=== PATIENT | female | born 1960 | race Caucasian/White ===

== ENCOUNTER 2017-01-31 09:15 | Emergency (ER) | payer OTHER ==
[2017-01-31 09:47] VITALS: BP 163/107
--- NOTE | 2017-01-31 10:18 | EDM.PDOC ---
ED HPI GENERAL MEDICAL PROBLEM - General Chief Complaint: Genitourinary Problem Stated Complaint: BLADDER INFECTION Time Seen by Provider: 01/31/17 09:42 Source of Information: Reports: Patient, RN Notes Reviewed History Limitations: Reports: No Limitations - History of Present Illness INITIAL COMMENTS - FREE TEXT/NARRATIVE: 56-year-old female presents emergency department a complaint of burning with urination she states had this for the last couple days it is progressively getting worse she has had chills but no fevers does complain of low back pain on the left - Related Data Allergies Allergy/AdvReac Type Severity Reaction Status Date / Time Sulfa (Sulfonamide Allergy Severe Swelling Verified 01/31/17 09:52 Antibiotics) Home Meds: Home Meds Multivitamin [Multivitamins] 1 tab PO DAILY 12/01/14 [History] Vitamin E 400 unit PO DAILY 12/01/14 [History] Acetaminophen/Diphenhydramine [Tylenol Pm Ex-Strength Caplet] 1 tab PO ASDIRECTED PRN 04/14/15 [History] Citalopram Hydrobromide [Celexa] 20 mg PO BEDTIME 04/14/15 [History] 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: Neurological History: Reports: Migraines Psychiatric History: Reports: Anxiety, Depression - Infectious Disease History Infectious Disease History: Reports: Chicken Pox - Past Surgical History Female Surgical History: Reports: Other (See Below) Other Female Surgeries/Procedures: bladder sling 10 years ago Social & Family History - Tobacco Use Smoking Status *Q: Never Smoker - Caffeine Use Caffeine Use: Reports: Coffee - Alcohol Use Days Per Week of Alcohol Use: 3 Number of Drinks Per Day: 2 Total Drinks Per Week: 6 - Recreational Drug Use Recreational Drug Use: No ED ROS GENERAL - Review of Systems Review Of Systems: See Below Constitutional: Reports: Chills. Denies: Fever HEENT: Reports: No Symptoms Respiratory: Reports: No Symptoms Cardiovascular: Reports: No Symptoms GI/Abdominal: Reports: No Symptoms : Reports: Dysuria, Frequency ED EXAM, RENAL/ - Physical Exam Exam: See Below Exam Limited By: No Limitations General Appearance: Alert, WD/WN, No Apparent Distress GI/Abdominal: Soft, Non-Tender, No Distention Back Exam: CVA Tenderness (L). No: CVA Tenderness (R) Course - Vital Signs Last Recorded V/S: Last Vital Signs Temp 97.7 F 01/31/17 09:49 Pulse 85 01/31/17 09:49 Resp 16 01/31/17 09:49 BP 163/107 H 01/31/17 09:49 Pulse Ox 94 L 01/31/17 09:49 - Orders/Labs/Meds Orders: Active Orders 24 hr Category Date Time Status CULTURE URINE [RM] Urgent Lab 01/31/17 10:12 Uncollected Labs: Laboratory Tests 01/31/17 Range/Units 09:39 Urine Color Yellow Urine Appearance Slightly cloudy Urine pH 7.0 (4.5-8.0) Ur Specific [place] 1.010 (1.008-1.030) Urine Protein Negative (NEGATIVE) mg/dL Urine Glucose (UA) Normal (NEGATIVE) mg/dL Urine Ketones Negative (NEGATIVE) mg/dL Urine Occult Blood Large (NEGATIVE) Urine Nitrite Negative (NEGATIVE) Urine Bilirubin Negative (NEGATIVE) Urine Urobilinogen Normal (NORMAL) mg/dL Ur Leukocyte Esterase Large (NEGATIVE) Urine RBC 10-20 H (0-5) Urine WBC Packed H (0-5) Ur Epithelial Cells Few Amorphous Sediment Not seen Urine Bacteria Not seen Urine Mucus Not seen Departure - Departure Time of Disposition: 10:17 Disposition: Home, Self-Care 01 Condition: Good Clinical Impression: UTI, Urinary tract infectious disease - Discharge Information Forms: ED Department Discharge Additional Instructions: Take full course of antibiotics, use Tylenol or ibuprofen as needed for symptomatic relief, Please followup with your primary care provider in 3-5 days if not better, please call return to the emergency department with worsening of symptoms. - My Orders Last 24 Hours: My Active Orders 01/31/17 10:12 CULTURE URINE [RM] Urgent - Assessment/Plan Last 24 Hours: My Active Orders 01/31/17 10:12 CULTURE URINE [RM] Urgent Plan: Assessment Acuity = acute Site and laterality = urinary tract infection Etiology = suspicious for bacterial cause Manifestations = dysuria Location of injury = Home Lab values = urinalysis reveals hematuria and pyuria both cultures pending Plan I did review lab work with her because of the potential of early kidney infection will treat with ciprofloxacin for longer course her follow-up with her primary care in 3-5 days if no improvement Patient was in agreement with the plan all questions were answered, they were instructed to return to the emergency department or call for worsening symptoms. This note was dictated using [employer] voice recognition software please call with any questions.
== END 2017-01-31 10:27 | disposition home or self-care (01) ==
LOC: JP.ED 09:15
DX: N39.0 Urinary tract infection, site not specified (principal); G43.909 Migraine, unspecified, not intractable, without status migrainosus; F41.9 Anxiety disorder, unspecified; F32.9 Major depressive disorder, single episode, unspecified; Z79.899 Other long term (current) drug therapy; Z88.2 Allergy status to sulfonamides
CPT/HCPCS: 81001; 99283; 99284

== ENCOUNTER → 2018-12-05 | Outpatient (CLI) | payer OTHER ==
--- NOTE | 2018-12-06 09:53 | CRLMY ---
INDICATION: Bilateral screening Mammogram, Asymptomatic 58 year old female been obtained using full-field digital technique. These mammographic images were interpreted with the benefit of computer-aided detection. COMPARISON FILM: 03/19/12, 10/20/09. FINDINGS: There are scattered fibroglandular densities. There are no masses or calcifications that are suspicious for malignancy. IMPRESSION: There is no radiographic evidence for malignancy. ASSESSMENT: BI-RADS Category 1: Negative RECOMMENDATION: Routine screening mammogram in 1 year. A lay language report of this examination will be provided to the patient. Breast Tomosynthesis was used in this interpretation. [email or web address] Dictated by: Vipin Casper MD @ 12/06/2018 09:52:04 (Electronically Signed)
== END ==
LOC: JP.MAM 13:46
PROVIDERS: ATTEND Family Medicine
DX: Z12.31 Encounter for screening mammogram for malignant neoplasm of breast (principal)
CPT/HCPCS: 77063; 77067

== ENCOUNTER 2019-04-01 08:57 | Emergency (ER) | payer OTHER ==
[2019-04-01 09:39] VITALS: BP 125/65
--- NOTE | 2019-04-01 10:40 | EDM.PDOC ---
ED HPI GENERAL MEDICAL PROBLEM - General Chief Complaint: ENT Problem Stated Complaint: THRUSH Time Seen by Provider: 04/01/19 10:25 Source of Information: Reports: Patient History Limitations: Reports: No Limitations - History of Present Illness INITIAL COMMENTS - FREE TEXT/NARRATIVE: 58-year-old female with soreness in her mouth for the past few days, she had a fever and cold symptoms preceding her symptoms. She is afraid she has thrush. Currently not febrile, no cough or shortness of breath. 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: Neurological History: Reports: Migraines Psychiatric History: Reports: Anxiety, Depression - Infectious Disease History Infectious Disease History: Reports: Chicken Pox - Past Surgical History HEENT Surgical History: Reports: Other (See Below) Other HEENT Surgeries/Procedures: THRUSH Female Surgical History: Reports: Other (See Below) Other Female Surgeries/Procedures: bladder sling 10 years ago Social & Family History - Tobacco Use Smoking Status *Q: Never Smoker - Caffeine Use Caffeine Use: Reports: Coffee - Recreational Drug Use Recreational Drug Use: No ED ROS ENT - Review of Systems Review Of Systems: See Below Constitutional: Reports: Fever, Chills HEENT: Reports: Rhinitis, Throat Pain Cardiovascular: Denies: Chest Pain GI/Abdominal: Denies: Nausea, Vomiting Skin: Denies: Rash Neurological: Denies: Headache ED EXAM, ENT - Physical Exam Exam: See Below Exam Limited By: No Limitations General Appearance: Alert, No Apparent Distress Mouth/Throat: Other (The oropharynx looks normal, she does have some erythema and what appears to be atrophy of the mucosa on the hard palate. These are likely ulcerations from a viral stomatitis.) Respiratory/Chest: No Respiratory Distress, Lungs Clear Neurological: Alert, Oriented Course - Vital Signs Last Recorded V/S: Last Vital Signs Temp 97.5 F 04/01/19 09:32 Pulse 87 04/01/19 09:32 Resp 16 04/01/19 09:32 BP 125/65 04/01/19 09:32 Pulse Ox 96 04/01/19 09:32 - Re-Assessments/Exams Free Text/Narrative Re-Assessment/Exam: 04/01/19 10:38 Explained to the patient that this likely is a viral syndrome, she however is convinced she needs treatment for thrush. I did give her prescription for some clotrimazole lozenges, they may be soothing and should not have any significant side effect. She can recheck in 2-3 days if not improving. Departure - Departure Time of Disposition: 10:48 Disposition: Home, Self-Care 01 Clinical Impression: Stomatitis, viral - Discharge Information Instructions: Stomatitis, [id number] Referrals: Mili Trevizo MD [Primary Care Provider] - Forms: ED Department Discharge Care Plan Goals: Use lozenges 4 times a day until gone. Consider rechecking in 2-3 days if not improving satisfactorily.
== END 2019-04-01 10:48 | disposition home or self-care (01) ==
LOC: JP.ED 08:57
DX: K12.1 Other forms of stomatitis (principal); F41.9 Anxiety disorder, unspecified; F32.9 Major depressive disorder, single episode, unspecified; Z88.2 Allergy status to sulfonamides; Z79.899 Other long term (current) drug therapy
CPT/HCPCS: 99283

== ENCOUNTER 2020-07-31 10:16 | Emergency (ER) | payer MEDICAID, OTHER ==
[2020-07-31 10:55] VITALS: BP 156/79; PULSE 79
--- NOTE | 2020-07-31 11:04 | EDM.PDOC ---
ED HPI GENERAL MEDICAL PROBLEM - General Chief Complaint: Genitourinary Problem Stated Complaint: POSSIBLE BLADDER INFECTION Time Seen by Provider: 07/31/20 10:55 Source of Information: Reports: Patient History Limitations: Reports: No Limitations - History of Present Illness INITIAL COMMENTS - FREE TEXT/NARRATIVE: 59-year-old female with a previous history of urinary tract infections presents with 2 days of increased urinary frequency, mild dysuria and a pressure sensation. No back pain or fever. Denies nausea or vomiting. 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: Neurological History: Reports: Migraines Psychiatric History: Reports: Anxiety, Depression - Infectious Disease History Infectious Disease History: Reports: Chicken Pox - Past Surgical History GI Surgical History: Reports: Other (See Below) Other GI Surgeries/Procedures: bladder sling Female Surgical History: Reports: Other (See Below) Other Female Surgeries/Procedures: bladder sling 10 years ago Social & Family History - Tobacco Use Tobacco Use Status *Q: Never Tobacco User - Caffeine Use Caffeine Use: Reports: Coffee - Recreational Drug Use Recreational Drug Use: No ED ROS GENERAL - Review of Systems Review Of Systems: See Below Constitutional: Denies: Fever, Chills Respiratory: Reports: No Symptoms Cardiovascular: Reports: No Symptoms GI/Abdominal: Reports: Other (Mild lower abdominal pressure) : Reports: Dysuria, Frequency, Urgency Skin: Reports: No Symptoms Neurological: Reports: No Symptoms ED EXAM, RENAL/ - Physical Exam Exam: See Below Exam Limited By: No Limitations General Appearance: Alert, No Apparent Distress Respiratory/Chest: No Respiratory Distress GI/Abdominal: Soft, Non-Tender Back Exam: No: CVA Tenderness (R), CVA Tenderness (L) Course - Vital Signs Last Recorded V/S: Last Vital Signs Temp 98.2 F 07/31/20 10:32 Pulse 79 07/31/20 10:32 Resp 16 07/31/20 10:32 BP 156/79 H 07/31/20 10:32 Pulse Ox 96 07/31/20 10:32 - Orders/Labs/Meds Orders: Active Orders 24 hr Category Date Time Status CULTURE URINE [RM] Stat Lab 07/31/20 10:59 Received Labs: Laboratory Tests 07/31/20 Range/Units 10:37 Urine Color Yellow (YELLOW) Urine Appearance Slightly cloudy A (CLEAR) Urine pH 7.5 (5.0-8.0) Ur Specific [place] 1.015 (1.008-1.030) Urine Protein Negative (NEGATIVE) mg/dL Urine Glucose (UA) Negative (NEGATIVE) mg/dL Urine Ketones Negative (NEGATIVE) mg/dL Urine Occult Blood Small H (NEGATIVE) Urine Nitrite Negative (NEGATIVE) Urine Bilirubin Negative (NEGATIVE) Urine Urobilinogen 0.2 (0.2-1.0) EU/dL Ur Leukocyte Esterase Trace H (NEGATIVE) Urine RBC 0-5 (0-5) Urine WBC 10-20 H (0-5) Ur Epithelial Cells Rare Amorphous Sediment Not seen Urine Bacteria Few Urine Mucus Not seen - Re-Assessments/Exams Free Text/Narrative Re-Assessment/Exam: 07/31/20 11:03 UA shows 10-20 WBCs, mild leukoesterase and some bacteria. A urine culture was started and the patient will be placed on Macrobid twice daily for 7 days, she does have a doctor appointment in 3 days and can recheck at that time. Departure - Departure Time of Disposition: 11:13 Disposition: Home, Self-Care 01 Clinical Impression: UTI, Urinary tract infectious disease - Discharge Information Instructions: Urinary Tract Infection, Adult Referrals: PCP,None [Primary Care Provider] - Forms: ED Department Discharge Care Plan Goals: Take antibiotic twice daily for at least 5 days, recheck Monday as scheduled. Return sooner if worsening such as vomiting the medication, increased pain or persistent fever. Sepsis Event Note (ED) - Evaluation Sepsis Screening Result: No Definite Risk - Focused Exam Vital Signs: Vital Signs Temp Pulse Resp BP Pulse Ox 07/31/20 10:32 98.2 F 79 16 156/79 H 96 - My Orders Last 24 Hours: My Active Orders 07/31/20 10:59 CULTURE URINE [RM] Stat - Assessment/Plan Last 24 Hours: My Active Orders 07/31/20 10:59 CULTURE URINE [RM] Stat
== END 2020-07-31 11:13 | disposition home or self-care (01) ==
LOC: JP.ED 10:16
DX: N39.0 Urinary tract infection, site not specified (principal); F41.9 Anxiety disorder, unspecified; F32.9 Major depressive disorder, single episode, unspecified; Z79.899 Other long term (current) drug therapy; Z88.2 Allergy status to sulfonamides
CPT/HCPCS: 81001; 87086; 87088; 87186; 99283

== ENCOUNTER 2021-01-17 11:51 | Emergency (ER) | payer MEDICAID ==
[2021-01-17 12:07] VITALS: BP 132/58; PULSE 72
--- NOTE | 2021-01-17 12:41 | EDM.PDOC ---
ED HPI GENERAL MEDICAL PROBLEM - General Chief Complaint: Genitourinary Problem Stated Complaint: POSSIBLE BLADDER INFECTION Time Seen by Provider: 01/17/21 12:32 Source of Information: Reports: Patient History Limitations: Reports: No Limitations ( ) - History of Present Illness INITIAL COMMENTS - FREE TEXT/NARRATIVE: Giancarlo is a 60 year old female whom presents to ER for evaluation of urinary symptoms: Urgency, frequency and burning. Symptoms started on and patient attempted to increase water intake, cranberry juice and ASA with slight improvement but no resolution. Giancarlo has had 3-4 UTIs since June after the loss of her . Giancarlo believes his urinary tract infection is due to not emptying her bladder in a timely manner. Giancarlo does not recall previous antibiotic treatments. 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: Neurological History: Reports: Migraines Psychiatric History: Reports: Anxiety, Depression - Infectious Disease History Infectious Disease History: Reports: Chicken Pox - Past Surgical History HEENT Surgical History: Reports: Other (See Below) Other HEENT Surgeries/Procedures: THRUSH GI Surgical History: Reports: Other (See Below) Other GI Surgeries/Procedures: bladder sling Female Surgical History: Reports: Other (See Below) Other Female Surgeries/Procedures: bladder sling 10 years ago Social & Family History - Tobacco Use Tobacco Use Status *Q: Never Tobacco User - Caffeine Use Caffeine Use: Reports: Coffee ED ROS GENERAL - Review of Systems Review Of Systems: Comprehensive ROS is negative, except as noted in HPI. ED EXAM, RENAL/ - Physical Exam Exam: See Below Exam Limited By: No Limitations General Appearance: Alert, WD/WN, Mild Distress (emotional due to recent loss of ) Eye Exam: Bilateral Eye: Normal Inspection, PERRL Ears: Normal External Exam, Hearing Grossly Normal Nose: Normal Inspection Throat/Mouth: Normal Voice, No Airway Compromise Neck: Normal Inspection Respiratory/Chest: No Respiratory Distress, Normal Breath Sounds Cardiovascular: Normal Peripheral Pulses, Regular Rate, Rhythm GI/Abdominal: Normal Bowel Sounds, Tender (suprapubic) Back Exam: No: CVA Tenderness (R), CVA Tenderness (L) Neurological: Alert, Oriented, CN II-XII Intact Psychiatric: Normal Affect, Tearful (talking about ) Course - Vital Signs Last Recorded V/S: Last Vital Signs Temp 36.1 C 01/17/21 12:24 Pulse 72 01/17/21 12:24 Resp 16 01/17/21 12:24 BP 132/58 L 01/17/21 12:24 Pulse Ox 98 01/17/21 12:24 - Orders/Labs/Meds Labs: Laboratory Tests 01/17/21 Range/Units 12:15 Urine Color Yellow (YELLOW) Urine Appearance Cloudy A (CLEAR) Urine pH 7.0 (5.0-8.0) Ur Specific [place] 1.015 (1.008-1.030) Urine Protein Negative (NEGATIVE) mg/dL Urine Glucose (UA) Negative (NEGATIVE) mg/dL Urine Ketones Negative (NEGATIVE) mg/dL Urine Occult Blood Trace-intact H (NEGATIVE) Urine Nitrite Negative (NEGATIVE) Urine Bilirubin Negative (NEGATIVE) Urine Urobilinogen 0.2 (0.2-1.0) EU/dL Ur Leukocyte Esterase Small H (NEGATIVE) Urine RBC 0-5 (0-5) Urine WBC 5-10 H (0-5) Ur Epithelial Cells Not seen Amorphous Sediment Not seen Urine Bacteria Many Urine Mucus Not seen Departure - Departure Time of Disposition: 12:45 Disposition: Home, Self-Care 01 Clinical Impression: UTI (urinary tract infection) - Discharge Information Prescriptions: cephALEXin [Keflex] 500 mg PO BID 7 Days #14 cap Instructions: Urinary Tract Infection, Adult Referrals: PCP,None [Primary Care Provider] - Additional Instructions: Urine Culture pending, you will be contacted if antibiotic change is recommended due to culture results. May take up to 5 days for culture test to be completed. Sepsis Event Note (ED) - Evaluation Sepsis Screening Result: No Definite Risk - Focused Exam Vital Signs: Vital Signs Temp Pulse Resp BP Pulse Ox 01/17/21 12:24 36.1 C 72 16 132/58 L 98 01/17/21 12:06 36.1 C 72 16 132/58 L 98
== END 2021-01-17 13:00 | disposition home or self-care (01) ==
LOC: JP.ED 11:51
DX: N39.0 Urinary tract infection, site not specified (principal); Z88.2 Allergy status to sulfonamides
CPT/HCPCS: 81001; 87086; 87088; 87186; 99283; 99284

== ENCOUNTER 2021-02-07 17:54 | Emergency (ER) | payer MEDICAID ==
[2021-02-07 18:11] VITALS: BP 153/75; PULSE 81
--- NOTE | 2021-02-07 18:42 | EDM.PDOC ---
ED HPI GENERAL MEDICAL PROBLEM - General Chief Complaint: Laceration Stated Complaint: BIT TONGUE Time Seen by Provider: 02/07/21 18:36 Source of Information: Reports: Patient, RN History Limitations: Reports: No Limitations - History of Present Illness INITIAL COMMENTS - FREE TEXT/NARRATIVE: Giancarlo is a 60 year old female whom present to Er after biting her tongue eating this evening resulting in rather significant bleeding which she was able to control with a wet wash cloth. Giancarlo is feeling a bit lightheaded and concerned regarding secondary bacterial infection with rag use and open tongue laceration. 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: Neurological History: Reports: Migraines Psychiatric History: Reports: Anxiety, Depression - Infectious Disease History Infectious Disease History: Reports: Chicken Pox - Past Surgical History HEENT Surgical History: Reports: Other (See Below) Other HEENT Surgeries/Procedures: THRUSH GI Surgical History: Reports: Other (See Below) Other GI Surgeries/Procedures: bladder sling Female Surgical History: Reports: Other (See Below) Other Female Surgeries/Procedures: bladder sling 10 years ago Social & Family History - Tobacco Use Tobacco Use Status *Q: Never Tobacco User - Caffeine Use Caffeine Use: Reports: Coffee - Recreational Drug Use Recreational Drug Use: No ED ROS GENERAL - Review of Systems Review Of Systems: Comprehensive ROS is negative, except as noted in HPI. ED EXAM, SKIN/RASH Exam: See Below Exam Limited By: No Limitations General Appearance: Alert, WD/WN, Mild Distress Eye Exam: Bilateral Eye: Normal Inspection Ears: Normal External Exam, Hearing Grossly Normal Nose: Normal Inspection Throat/Mouth: Normal Inspection, Normal Lips, Normal Teeth, Other (right inferior tongue laceration less than 0.5mg with bleeding controled) Head: Atraumatic, Normocephalic Neck: Normal Inspection Respiratory/Chest: No Respiratory Distress, Normal Breath Sounds Cardiovascular: Normal Peripheral Pulses Extremities: Normal Inspection Neurological: Alert, Oriented, CN II-XII Intact, Normal Cognition Psychiatric: Normal Mood, Flat Affect Course - Vital Signs Last Recorded V/S: Last Vital Signs Temp 36.2 C 02/07/21 18:14 Pulse 81 02/07/21 18:14 Resp 16 02/07/21 18:14 BP 153/75 H 02/07/21 18:14 Pulse Ox 98 02/07/21 18:14 Departure - Departure Time of Disposition: 18:39 Disposition: Home, Self-Care 01 Clinical Impression: Simple laceration of tongue - Discharge Information Instructions: Mouth Laceration, Puncture Wound, [id number] Referrals: PCP,None [Primary Care Provider] - Additional Instructions: 1. Swish, spit and gargle salt water after meals to ensure no food caught in laceration. 2. Ice cube to affected area to help with swelling, pain and recurrent bleeding if needed. 3. Tylenol or Ibuprofen for pain if needed. 4. tongue lacerations do not require sutures unless tongue margin involved or too large to heal. 5. Tongues usually heal in 48-72hrs and rarely become infection due to normal bacteria and enzymes in the mouth Sepsis Event Note (ED) - Evaluation Sepsis Screening Result: No Definite Risk - Focused Exam Vital Signs: Vital Signs Temp Pulse Resp BP Pulse Ox 02/07/21 18:14 36.2 C 81 16 153/75 H 98 02/07/21 18:09 36.2 C 81 16 153/75 H 98
== END 2021-02-07 18:57 | disposition home or self-care (01) ==
LOC: JP.ED 17:54
DX: S01.512A Laceration without foreign body of oral cavity, initial encounter (principal); Z88.2 Allergy status to sulfonamides; X58.XXXA Exposure to other specified factors, initial encounter
CPT/HCPCS: 99282